=== PATIENT | female | born 1985 | race Caucasian/White ===

== ENCOUNTER 2016-10-28 15:25 | Outpatient (CLI) | payer MEDICAID | END 2016-10-28 15:26 | disposition home or self-care (01) | LOC: LAB.F 15:25 | PROVIDERS: ATTEND Family Medicine | DX: N93.9 Abnormal uterine and vaginal bleeding, unspecified (principal) | CPT/HCPCS: 36415; 84702 ==

== ENCOUNTER 2016-12-16 07:55 | Outpatient (CLI) | payer MEDICAID | END 2016-12-16 07:56 | disposition home or self-care (01) | LOC: LAB.F 07:55 | PROVIDERS: ATTEND Nurse Practitioner Family | DX: Z20.2 Contact with and (suspected) exposure to infections with a predominantly sexual mode of transmission (principal) | CPT/HCPCS: 36415; 86780; 86803; 87389 ==

== ENCOUNTER 2017-02-16 17:35 | Outpatient (CLI) | payer MEDICAID, OTHER | END 2017-02-16 17:36 | disposition critical access hospital (66) | LOC: EMS 17:35 | PROVIDERS: ATTEND Surgery | DX: M54.2 Cervicalgia (principal); V53.5XXA Driver of pick-up truck or van injured in collision with car, pick-up truck or van in traffic accident, initial encounter; Y92.413 State road as the place of occurrence of the external cause | CPT/HCPCS: A0425; A0429 ==

== ENCOUNTER 2017-02-16 18:03 | Emergency (ER) | payer OTHER, MEDICAID ==
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
[2017-02-16] MEDS ORDERED: ACETAMINOPHEN 325 MG TABLET PO STA (19:03)
--- NOTE | 2017-02-16 19:13 | CT Preliminary Report ---
Exam: CT Cervical Spine W/O IMPRESSION: Negative cervical spine CT. [facility] SITE ID: [id number]
--- NOTE | 2017-02-16 19:16 | XRAY Preliminary Report ---
Exam: XR Chest 2 View PA/LAT IMPRESSION: No focal lung consolidation or pleural effusions. No pneumothorax. [facility] SITE ID: [id number]
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
[2017-02-16] MEDS ORDERED: ACETAMINOPHEN 325 MG TABLET PO ONE (19:23)
[2017-02-16 19:27] VITALS: BP 112/76
== END 2017-02-16 19:26 | disposition home or self-care (01) ==
LOC: EDUNIT# → ED 18:03
DX: S20.219A Contusion of unspecified front wall of thorax, initial encounter (principal); W22.11XA Striking against or struck by driver side automobile airbag, initial encounter; Y92.411 Interstate highway as the place of occurrence of the external cause; M54.2 Cervicalgia
CPT/HCPCS: 71020; 72125; 99283; 99284; A9270

== ENCOUNTER 2017-05-27 16:33 | Outpatient (CLI) | payer MEDICAID, OTHER ==
[2017-05-27 15:47] LABS: MUDS CUTOFF CONCENTRATIONS CUTOFF CONC BELOW:
[2017-05-27 16:10] LABS: AMPHETAMINE SCREEN,URINE NEGATIVE (NEGATIVE); BENZODIAZEPINES SCREEN, URINE NEGATIVE (NEGATIVE); COCAINE SCREEN URINE NEGATIVE (NEGATIVE); METHADONE SCREEN, URINE NEGATIVE (NEGATIVE); METHAMPHETAMINES SCREEN, URINE NEGATIVE (NEGATIVE); OPIATE SCREEN, URINE NEGATIVE (NEGATIVE); OXYCODONE SCREEN, URINE NEGATIVE (NEGATIVE); PROPOXYPHENE SCREEN, URINE NEGATIVE (NEGATIVE); TRICYCLIC ANTIDEPRESSANT,URINE NEGATIVE (NEGATIVE)
== END 2017-05-27 16:34 | disposition home or self-care (01) ==
LOC: LAB.R 16:33
PROVIDERS: ATTEND Registered Nurse
DX: Z11.3 Encounter for screening for infections with a predominantly sexual mode of transmission (principal); F19.94 Other psychoactive substance use, unspecified with psychoactive substance-induced mood disorder
CPT/HCPCS: 80306; 87491; 87591

== ENCOUNTER 2017-08-03 16:26 | Outpatient (CLI) | payer MEDICAID | END 2017-08-03 16:27 | LOC: LAB.R 16:26 | PROVIDERS: ATTEND Registered Nurse | DX: Z30.433 Encounter for removal and reinsertion of intrauterine contraceptive device (principal) | CPT/HCPCS: 87491; 87591 ==

== ENCOUNTER 2017-09-01 15:01 | Emergency (ER) | payer MEDICAID ==
[2017-09-01 15:13] VITALS: BP 139/89
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
[2017-09-01 15:36] LABS: MUDS CUTOFF CONCENTRATIONS CUTOFF CONC BELOW:
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
[2017-09-01 15:38] LABS: BILIRUBIN,URINE NEGATIVE (NEGATIVE); GLUCOSE, URINE (UA) NEGATIVE (NEGATIVE); KETONES,URINE (UA) NEGATIVE (NEGATIVE); LEUKOCYTE ESTERASE, URINE NEGATIVE (NEGATIVE); NITRITE,URINE NEGATIVE (NEGATIVE); OCCULT BLOOD,URINE NEGATIVE (NEGATIVE); PH,URINE 6.5 PH (5.0-7.5); PROTEIN,URINE NEGATIVE (NEGATIVE); UROBILINOGEN,URINE 0.2 (NORMAL) E.U./dL (NORMAL)
[2017-09-01 15:41] LABS: CLARITY,URINE CLEAR (CLEAR); HCG UR QUAL NEGATIVE
[2017-09-01 15:50] LABS: AMPHETAMINE SCREEN,URINE NEGATIVE (NEGATIVE); BENZODIAZEPINES SCREEN, URINE NEGATIVE (NEGATIVE); COCAINE SCREEN URINE NEGATIVE (NEGATIVE); METHADONE SCREEN, URINE NEGATIVE (NEGATIVE); METHAMPHETAMINES SCREEN, URINE NEGATIVE (NEGATIVE); OPIATE SCREEN, URINE NEGATIVE (NEGATIVE); OXYCODONE SCREEN, URINE NEGATIVE (NEGATIVE); PROPOXYPHENE SCREEN, URINE NEGATIVE (NEGATIVE); TRICYCLIC ANTIDEPRESSANT,URINE NEGATIVE (NEGATIVE)
== END 2017-09-01 16:23 | disposition home or self-care (01) ==
LOC: ED 15:01
DX: F41.9 Anxiety disorder, unspecified (principal)
CPT/HCPCS: 80306; 81003; 81025; 99283; G0426; Q3014; 81001; 87086

== ENCOUNTER 2021-04-13 10:31 | Emergency (ER) | payer MEDICAID, OTHER ==
[2021-04-13 10:56] LABS: BILIRUBIN,URINE NEGATIVE (NEGATIVE); GLUCOSE, URINE (UA) NEGATIVE (NEGATIVE); KETONES,URINE (UA) NEGATIVE (NEGATIVE); LEUKOCYTE ESTERASE, URINE NEGATIVE (NEGATIVE); NITRITE,URINE NEGATIVE (NEGATIVE); OCCULT BLOOD,URINE NEGATIVE (NEGATIVE); PROTEIN,URINE NEGATIVE (NEGATIVE); UROBILINOGEN,URINE 0.2 (NORMAL) E.U./dL (NORMAL)
[2021-04-13 10:57] LABS: CLARITY,URINE CLEAR (CLEAR)
[2021-04-13 11:01] LABS: BASOPHILS # (AUTO) 0.1 10^3/uL (0.0-0.1); BASOPHILS % (AUTO) 0.8 %; EOSINOPHILS # (AUTO) 0.3 10^3/uL (0.0-0.7); EOSINOPHILS % (AUTO) 3.9 %; HCT - HEMATOCRIT 40.1 % (37.0-47.0); LYMPHOCYTES # (AUTO) 1.9 10^3/uL (1.5-3.5); LYMPHOCYTES % (AUTO) 26.4 %; MEAN CORPUSCULAR HEMOGLOBIN 31.2 pg (27.0-31.0); MEAN CORPUSCULAR HGB CONC 32.4 g/dL (32.0-36.0); MEAN CORPUSCULAR VOLUME 96.2 fL (81.0-99.0); MONOCYTES # (AUTO) 0.5 10^3/uL (0.0-1.0); MONOCYTES % (AUTO) 7.2 %; NEUTROPHILS # (AUTO) 4.5 10^3/uL (1.5-6.6); NEUTROPHILS % (AUTO) 61.3 %; PLT - PLATELET COUNT 287 10^3/uL (130-450); RED BLOOD COUNT 4.17 10^6/uL (4.20-5.40); RED CELL DISTRIBUTION WIDTH 12.5 % (12.0-15.0); WHITE BLOOD COUNT 7.4 x10^3/uL (4.8-10.8)
[2021-04-13 11:14] LABS: ALBUMIN 4.9 g/dL (3.2-5.5); ALBUMIN/GLOBULIN RATIO 1.6 (1.0-2.2); BILIRUBIN,TOTAL 0.8 mg/dL (0.2-1.0); CALCIUM 9.3 mg/dL (8.5-10.3); CREATININE 0.6 mg/dL (0.4-1.0)
[2021-04-13 13:25] VITALS: BP 124/78
--- NOTE | 2021-04-13 13:37 | ED Physician Documentation ---
PD HPI ABD PAIN - Stated complaint Stated Complaint: POST OP COMPLICATION - Chief complaint Chief Complaint: Abd Pain - History obtained from History obtained from: Patient - Additional information Additional information: 35-year-old woman is about 3-1/2 weeks out from a hysterectomy and oophorectomy for endometriosis and ovarian cyst. She still has one ovary but she does not know which. She has had increased pain over the last week or so. No fevers but she has had some hot flashes. No vaginal discharge or bleeding. Referred in by her surgeon for concern for infection. Not examined by her s talib. 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 - Present Medications Home Medications: Ambulatory Orders Medication Instructions Recorded Confirmed LORazepam [Ativan] 0.5 mg PO Q8H PRN #5 tablet 06/02/17 Ondansetron HCl [Zofran] 4 mg PO Q4H PRN 06/02/17 06/02/17 HYDROmorphone [Dilaudid] 1 - 2 tab PO Q4H PRN #20 tablet 04/13/21 - Allergies Allergies/Adverse Reactions: Allergies Allergy/AdvReac Type Severity Reaction Status Date / Time prednisone Allergy Edema Verified 04/13/21 10:41 - Social History Does the pt smoke?: No Smoking Status: Never smoker Does the pt drink ETOH?: No Does the pt have substance abuse?: Yes - Immunizations Immunizations are current?: Yes - POLST Patient has POLST: No PD ED PE NORMAL - Vitals Vital signs reviewed: Yes - General General: Alert and oriented X 3, No acute distress - HEENT HEENT: PERRL, EOMI - Neck Neck: Supple, no meningeal sign, No bony TTP - Cardiac Cardiac: RRR, No murmur - Respiratory Respiratory: No respiratory distress, Clear bilaterally - Abdomen Abdomen: Other (Very mild suprapubic tenderness, low Pfannenstiel incision clean dry and intact without signs of infection. Bedside ultrasound without abdominal free fluid.) - Derm Derm: Normal color, Warm and dry - Extremities Extremities: No edema, No calf tenderness / cord - Neuro Neuro: Alert and oriented X 3, Normal speech Results - Vitals Vitals: Vital Signs - 24 hr 04/13/21 04/13/21 10:39 13:25 Temperature 36.3 C L 36.5 C Heart Rate 90 88 Respiratory 16 16 Rate Blood Pressure 125/79 124/78 O2 Saturation 99 99 Oxygen O2 Source Room air - Labs Labs: Laboratory Tests 04/13/21 04/13/21 04/13/21 10:50 10:57 10:57 WBC 7.4 RBC 4.17 L Hgb 13.0 Hct 40.1 MCV 96.2 MCH 31.2 H MCHC 32.4 RDW 12.5 Plt Count 287 MPV 10.0 Neut # (Auto) 4.5 Lymph # (Auto) 1.9 [place] # (Auto) 0.5 Eos # (Auto) 0.3 Baso # (Auto) 0.1 Absolute Nucleated RBC 0.00 Nucleated RBC % 0.0 Sodium 137 Potassium 4.0 Chloride 99 L Carbon Dioxide 28 Anion Gap 10.0 BUN 9 Creatinine 0.6 Estimated GFR (MDRD) 114 Glucose 99 Calcium 9.3 Total Bilirubin 0.8 AST 19 ALT 14 Alkaline Phosphatase 33 L Total Protein 8.0 Albumin 4.9 Globulin 3.1 Albumin/Globulin Ratio 1.6 Lipase 33 Urine Color YELLOW Urine Clarity CLEAR Urine pH 6.0 Ur Specific [place] 1.010 Urine Protein NEGATIVE Urine Glucose (UA) NEGATIVE Urine Ketones NEGATIVE Urine Occult Blood NEGATIVE Urine Nitrite NEGATIVE Urine Bilirubin NEGATIVE Urine Urobilinogen 0.2 (NORMAL) Ur Leukocyte Esterase NEGATIVE Ur Microscopic Review NOT INDICATED Urine Culture Comments NOT INDICATED PD MEDICAL DECISION MAKING - ED course ED course: 35-year-old woman with postoperative pain, some concern for infection. Exam not concerning for infection and her white count was 7.4. No evidence of UTI. Discussed watchful waiting with pain meds versus a CT today and she opted for the former. I am prescribing a short course of short-acting opioid pain medication for this patient. 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 I have discussed that the opioids are for short term therapy only, and will not be refilled from the ED. Departure - Departure Disposition: 01 Home, Self Care Condition: Good Record reviewed to determine appropriate education?: Yes Instructions: ED Pelvic Pain [facility] Prescriptions: HYDROmorphone [Dilaudid] 1 - 2 tab PO Q4H PRN #20 tablet PRN Reason: Pain Comments: Prescription sent electronically to [facility] in [place]. Follow-up with your surgeon next Tuesday as scheduled. Let him or her know that your white blood cell count today was 7.4, not too much pelvic tenderness and not too much clinical concern for infection. Return if you worsen or if you develop a fever defined as a temperature of greater than 100.4 Fahrenheit/38.0 Celsius. I am prescribing a short course of narcotic pain medication for you. These are potentially dangerous and addictive medications that should be used carefully. These medications may constipate you. Take an [id number] stool softener (docusate) twice daily with plenty of water while taking these medications. If you go 24 hours without a bowel movement, take [id number] miralax, per package instructions. Do not drink or drive while taking these medications. If you received narcotic or sedating medications while in the emergency department, do not drive for 24 hours. Store this medication in a safe, secure place and out of reach of children. It is a violation of federal law to give or sell this medication to another person or to use in a manner other than prescribed. The ED will not refill narcotic prescriptions, including prescriptions lost or stolen. To dispose of unwanted medications: 1. [facility] [address] in [place] has a medication drop box. They accept prescription medications (in pill form) Tuesday through Tuesday 9:00 a.m. to 5:00 p.m. 2. The [facility] accepts prescription medications (in pill form only) for disposal year round. Call for more informati on. 3. Contact the [facility] for the next [facility] sponsored prescription drug collection event. , [phone], or [phone]; Note that many narcotic pain relievers also contain Tylenol/acetaminophen. Please ensure that your total dose of acetaminophen from all sources does not exceed 3 g (3000 mg) per day.
== END 2021-04-13 13:41 | disposition home or self-care (01) ==
LOC: ED 10:31
DX: G89.18 Other acute postprocedural pain (principal)
CPT/HCPCS: 36415; 80053; 81001; 81003; 83690; 85025; 87086; 99283

== ENCOUNTER 2023-08-19 18:35 | Outpatient (CLI) | payer OTHER | END 2023-08-19 23:59 | disposition left against medical advice (07) | LOC: EMS 18:35 | DX: R07.89 Other chest pain (principal); M25.512 Pain in left shoulder; S30.810A Abrasion of lower back and pelvis, initial encounter; V42.5XXA Car driver injured in collision with two- or three-wheeled motor vehicle in traffic accident, initial encounter; Y92.413 State road as the place of occurrence of the external cause ==